=== PATIENT | female | born 1960 | race Caucasian/White ===

== ENCOUNTER 2017-11-27 08:24 | Outpatient (CLI) | payer OTHER ==
--- NOTE | 2017-11-27 10:25 | MMO ---
BILATERAL SCREENING MAMMOGRAM: Date: 11/27/17 HISTORY: 57-year-old female. Routine screening mammography. COMPARISON: 10/04/15, 11/14/16. TECHNIQUE: CC and MLO views of both breasts are submitted for interpretation. This patient's mammogram was reviewed with the assistance of computer-aided detection. FINDINGS: The breasts are composed of scattered fibroglandular tissue. Bilaterally, no suspicious dominant mass , architectural distortion, or suspicious calcifications. There are bilateral benign-appearing calcif ications. IMPRESSION: BIRADS 2: Benign Finding(s) RECOMMENDATION: Annual mammogram. POS: [facility]
== END 2017-11-27 08:25 | disposition home or self-care (01) ==
LOC: SCSMAMMO 08:24
PROVIDERS: ATTEND Obstetrics & Gynecology
DX: Z12.31 Encounter for screening mammogram for malignant neoplasm of breast (principal)
CPT/HCPCS: 77067

== ENCOUNTER 2018-12-09 14:51 | Outpatient (CLI) | payer OTHER ==
--- NOTE | 2018-12-09 15:38 | MMO ---
Bilateral MAMMO Bilat Screen [facility]DI+EV. CLINICAL HISTORY: Patient is 58 years old and is seen for screening. The patient has the following family history of breast cancer: aunt and 2 cousin females. The patient has no personal history of cancer. VIEWS: The views performed were: bilateral craniocaudal with tomosynthesis and bilateral mediolateral oblique with tomosynthesis. FILMS COMPARED: The present examination has been compared to prior imaging studies performed at [facility] on 11/14/2016 and 11/27/2017, and at [facility] on 09/29/2014 and 10/04/2015. MAMMOGRAM FINDINGS: There are scattered fibroglandular densities. There are stable benign appearing calcifications seen in both breasts. There are also vascular calcifications. There are no suspicious masses, suspicious calcifications, or new areas of architectural distortion. IMPRESSION: THERE IS NO MAMMOGRAPHIC EVIDENCE OF MALIGNANCY. A ROUTINE FOLLOW-UP MAMMOGRAM IN 1 YEAR IS RECOMMENDED. THE RESULTS OF THIS EXAM WERE SENT TO THE PATIENT. ACR BI-RADS Category 2 - Benign finding MAMMOGRAPHY NOTE: 1. A negative mammogram report should not delay a biopsy if a dominant of clinically suspicious mass is present. 2. Approximately 10% to 15% of breast cancers are not detected by mammography. 3. Adenosis and dense breasts may obscure an underlying neoplasm. Reported by: MADELEINE RICKS MD Electonically Signed: [id number]
== END 2018-12-09 14:52 | disposition home or self-care (01) ==
LOC: BICMAMMO 14:51
PROVIDERS: ATTEND Obstetrics & Gynecology
DX: Z12.31 Encounter for screening mammogram for malignant neoplasm of breast (principal); Z80.3 Family history of malignant neoplasm of breast
CPT/HCPCS: 77063; 77067

== ENCOUNTER 2019-01-27 11:16 | Outpatient (CLI) | payer OTHER ==
--- NOTE | 2019-01-27 11:41 | RAD ---
XR Chest Pa Lat STANDARD HISTORY: Hypertension COMPARISON: None FINDINGS: The heart size is at upper limits of normal. The lungs are well expanded without focal area s of consolidation, pneumothorax or pleural effusions. There are degenerative changes in the spine IMPRESSION: No radiographic evidence of acute cardiopulmonary process.
== END 2019-01-27 11:17 | disposition home or self-care (01) ==
LOC: BICRAD 11:16
PROVIDERS: ATTEND Internal Medicine
DX: I10 Essential (primary) hypertension (principal)
CPT/HCPCS: 71046

== ENCOUNTER 2019-04-23 20:58 | Emergency (ER) | payer OTHER ==
--- NOTE | 2019-04-23 23:45 | MRI ---
MRI cervical spine noncontrast: DATE: 04/23/2019 Time: 11:20 PM HISTORY: 58-year-old female with bilateral cervical radiculopathy, acute COMPARISON: None FINDINGS: There is extruded disc material in the anterior epidural space, contiguously from C5-6 level to C6-C7 level. This could either represent disc herniation at C6-7 with superior migration of extruded disc material, or disc herniation at C5-6 with inferior migration of extruded disc material. The latt er is slightly favored, because the migration appears to extend slightly superior to the C5-6 disc space level. At C5-6, this central and bilateral paracentral disc herniation abuts and mildly indents the ventral surface of the spinal cord, displacing the spinal cord posteriorly in the spinal canal, and causing moderate central spinal canal stenosis. At C5-6 there is mild right neural foraminal stenosis and mod erate left neural foraminal stenosis. At C6-7, the disc herniation is asymmetrically centered at the right paracentral and right lateral po rtions of the spinal canal, causing mild right neural foraminal stenosis and no left neural foraminal stenosis, and moderate central stenosis (less stenotic than C5-6). Vertebral body heights are maintained. Mild disc space narrowing at C5-6. The rest of the disc spaces are maintained. No high-grade facet DJD at any level. Alignment is normal. Cervical spinal cord is normal in size and signal. Other than C5-6 and C6-7, there is no significant central or neural forami nal stenosis at any other level. IMPRESSION: 1. 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 2. The C5-6 extruded disc herniation material has inferiorly migrated down to the next, C6-7 level. 3. C5-6 disc herniation mildly impinges on the spinal cord.
== END 2019-04-24 00:15 | disposition home or self-care (01) ==
LOC: ERS 20:58
DX: M50.223 Other cervical disc displacement at C6-C7 level (principal); E03.9 Hypothyroidism, unspecified; K21.9 Gastro-esophageal reflux disease without esophagitis; E78.5 Hyperlipidemia, unspecified; E78.00 Pure hypercholesterolemia, unspecified; I10 Essential (primary) hypertension; Z79.899 Other long term (current) drug therapy; Z79.82 Long term (current) use of aspirin
CPT/HCPCS: 72141

== ENCOUNTER 2019-08-10 15:45 | Outpatient (CLI) | payer OTHER ==
--- NOTE | 2019-08-10 16:49 | MRI ---
LUMBAR SPINE MRI WITHOUT CONTRAST: 08/10/19 COMPARISON: None. HISTORY: Low back pain, bilateral lower extremity radiculopathy, lifting injury. TECHNIQUE: Multiplanar and multisequence MR imaging of the lumbar spine provided without contrast. FINDINGS: Sagittal STIR imaging demonstrates no focal area of osseous marrow edema. On the basis of five lumbar type vertebral bodies, the conus medullaris terminates at the t12-L1 leve l. T12-L1: Mild facet and uncovertebral osteophyte formation on the left. Intervertebral disc height and signal intensity within normal limits with no significant central canal or neural foraminal stenosis . Benign hemangioma noted at the T12 level. L1-2: Mild bilateral facet hypertrophy. Intervertebral disc height and signal intensity within normal limits with no significant central canal or neural foraminal stenosis. L2-3: Mild bilateral facet hypertrophy. Intervertebral disc height and signal intensity within normal limits. No significant central canal or neural foraminal stenosis. Benign hemangioma present at the L2 level. L3-4: Minimal disc bulge with no central canal stenosis. Mild bilateral facet hypertrophy with no grant ral foraminal stenosis on either side. L4-5: There is disc space narrowing with disc desiccation. There is an annular tear in the left parac entral region with a small disc protrusion in the left paracentral region causing a mild degree of le ft sided lateral recess stenosis. Mild/moderate bilateral facet hypertrophy is present. No significan t neural foraminal stenosis. There is vacuum disc formation at L4-5. L5-S1: Left lateral osteophyte formation noted. Intervertebral disc height and signal intensity withi n normal limits. Bilateral facet hypertrophy present. No significant central canal or neural foramina l stenosis. Review of the retroperitoneal structures demonstrates no acute findings. IMPRESSION: Lumbar spine degenerative change as detailed above, most significant at the L4-5 level. POS: [facility]
== END 2019-08-10 15:46 | disposition home or self-care (01) ==
LOC: SCSMRI 15:45
PROVIDERS: ATTEND Neurological Surgery
DX: M54.5 Low back pain (principal); M47.816 Spondylosis without myelopathy or radiculopathy, lumbar region
CPT/HCPCS: 72148

== ENCOUNTER 2020-03-21 15:24 | Outpatient (CLI) | payer OTHER ==
--- NOTE | 2020-03-21 16:16 | MMO ---
Bilateral MAMMO Bilat Screen [facility]DI[facility]EV. CLINICAL HISTORY: Patient is 59 years old and is seen for screening. The patient has the following family history of breast cancer: aunt and 2 cousin females. The patient has no personal history of cancer. VIEWS: The views performed were: bilateral craniocaudal with tomosynthesis and bilateral mediolateral oblique with tomosynthesis. FILMS COMPARED: The present examination has been compared to prior imaging studies performed at [facility] on 11/14/2016 and 11/27/2017, and at [facility] on 10/04/2015 and 12/09/2018. This study has been interpreted with the assistance of computer-aided detection. MAMMOGRAM FINDINGS: There are scattered fibroglandular densities. Benign calcifications are noted bilaterally. There are no suspicious masses, suspicious calcifications, or new areas of architectural distortion. IMPRESSION: THERE IS NO MAMMOGRAPHIC EVIDENCE OF MALIGNANCY. A ROUTINE FOLLOW-UP MAMMOGRAM IN 1 YEAR IS RECOMMENDED. THE RESULTS OF THIS EXAM WERE SENT TO THE PATIENT. ACR BI-RADS Category 2 - Benign finding MAMMOGRAPHY NOTE: 1. A negative mammogram report should not delay a biopsy if a dominant of clinically suspicious mass is present. 2. Approximately 10% to 15% of breast cancers are not detected by mammography. 3. Adenosis and dense breasts may obscure an underlying neoplasm. Reported by: TRINH SINHA MD Electonically Signed: [id number]
== END 2020-03-21 15:25 | disposition home or self-care (01) ==
LOC: BICMAMMO 15:24
PROVIDERS: ATTEND Internal Medicine
DX: Z12.31 Encounter for screening mammogram for malignant neoplasm of breast (principal); Z80.3 Family history of malignant neoplasm of breast
CPT/HCPCS: 77063; 77067

== ENCOUNTER 2020-05-15 14:48 | Outpatient (CLI) | payer OTHER ==
--- NOTE | 2020-05-15 15:12 | RAD ---
EXAM: XR Lumbar Spine Min 4 View PROVIDED CLINICAL HISTORY: Low back pain. COMPARISON: None FINDINGS: 2 body heights are within normal limits. There is mild narrowing of the L4-5 and L5-S1 intervertebral disc spaces. No fracture or subluxation is seen involving the lumbar spine. There is no abnormal translational motion between the flexion and extension views. A cast lesion is seen overlying the inferior pole left renal shadow likely due to left renal calculus . IMPRESSION: 1. Left nephrolithiasis. 2. Mild degenerative changes lower lumbar spine. No fracture or subluxation is seen.
== END 2020-05-15 14:49 | disposition home or self-care (01) ==
LOC: BICRAD 14:48
PROVIDERS: ATTEND Neurological Surgery
DX: M54.5 Low back pain (principal); M47.816 Spondylosis without myelopathy or radiculopathy, lumbar region; N20.0 Calculus of kidney
CPT/HCPCS: 72110

== ENCOUNTER 2021-04-02 09:30 | Outpatient (CLI) | payer OTHER | END 2021-04-02 09:31 | disposition home or self-care (01) | LOC: BICMAMMO 09:30 | PROVIDERS: ATTEND Internal Medicine | DX: Z12.31 Encounter for screening mammogram for malignant neoplasm of breast (principal); Z13.820 Encounter for screening for osteoporosis; Z78.0 Asymptomatic menopausal state; Z80.3 Family history of malignant neoplasm of breast; Z91.89 Other specified personal risk factors, not elsewhere classified | CPT/HCPCS: 77063; 77067; 77080 ==

== ENCOUNTER 2022-05-02 10:58 | Outpatient (CLI) | payer BC | END 2022-05-02 10:59 | disposition home or self-care (01) | LOC: BICMAMMO 10:58 | PROVIDERS: ATTEND Internal Medicine | DX: Z12.31 Encounter for screening mammogram for malignant neoplasm of breast (principal); Z80.3 Family history of malignant neoplasm of breast; Z91.89 Other specified personal risk factors, not elsewhere classified | CPT/HCPCS: 77063; 77067 ==

== ENCOUNTER 2023-06-26 09:42 | Outpatient (CLI) | payer BC | END 2023-06-26 09:43 | disposition home or self-care (01) | LOC: BICMAMMO 09:42 | PROVIDERS: ATTEND Internal Medicine | DX: Z12.31 Encounter for screening mammogram for malignant neoplasm of breast (principal); Z80.3 Family history of malignant neoplasm of breast; Z91.89 Other specified personal risk factors, not elsewhere classified | CPT/HCPCS: 77063; 77067 ==

== ENCOUNTER 2023-08-18 11:23 | Outpatient (CLI) | payer BC | END 2023-08-18 11:24 | disposition home or self-care (01) | LOC: BICRAD 11:23 | PROVIDERS: ATTEND Internal Medicine | DX: R22.42 Localized swelling, mass and lump, left lower limb (principal); M17.12 Unilateral primary osteoarthritis, left knee ==

== ENCOUNTER 2025-03-16 10:29 | Outpatient (CLI) | payer BC | END 2025-03-16 10:30 | disposition home or self-care (01) | LOC: SCSULT 10:29 | PROVIDERS: ATTEND Internal Medicine | DX: R79.89 Other specified abnormal findings of blood chemistry (principal); K80.20 Calculus of gallbladder without cholecystitis without obstruction | CPT/HCPCS: 76700; 93976 ==

== ENCOUNTER 2025-03-23 07:31 | Outpatient (CLI) | payer BC ==
[2025-03-23] MEDS ORDERED: Iopamidol 370 76% 100 ML VIAL ONE (09:50)
== END 2025-03-23 07:32 | disposition home or self-care (01) ==
LOC: CT 07:31
PROVIDERS: ATTEND Internal Medicine
DX: R31.9 Hematuria, unspecified (principal); R74.8 Abnormal levels of other serum enzymes; N20.0 Calculus of kidney; E27.8 Other specified disorders of adrenal gland; K80.20 Calculus of gallbladder without cholecystitis without obstruction; K57.30 Diverticulosis of large intestine without perforation or abscess without bleeding
CPT/HCPCS: 74178; Q9967